=== PATIENT | male | born 2005 | race Caucasian/White ===

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

== ENCOUNTER 2023-05-31 15:06 | Emergency (ER) | payer OTHER ==
[2023-05-31 15:10] VITALS: BMI 20.7
[2023-05-31] MEDS ORDERED: ACETAMINOPHEN 500 MG TABLET (FP) PO ONE (15:42)
[2023-05-31] MEDS ORDERED: OLANZapine 5 MG TABLET PO ONE (18:17)
[2023-05-31] MEDS ORDERED: ACETAMINOPHEN 325 MG TABLET (FP) ONE (18:36)
[2023-05-31 18:38] LABS: ACTIVATED PTT 27.1 SECONDS (25.2-36.5); INR 1.12 (0.83-1.09)
[2023-05-31 18:42] LABS: CHLORIDE 99 mmol/L (98-107); POTASSIUM 4.4 mmol/L (3.5-5.1); SODIUM 133 mmol/L (136-145)
[2023-05-31 18:43] LABS: CALCIUM 9.7 mg/dL (8.5-10.1)
[2023-05-31 18:44] LABS: ALBUMIN 4.5 g/dl (3.4-5.0); ANION GAP 10 mmol/L (4-13); CO2 25 mmol/L (21-32); GLUCOSE,RANDOM 99 mg/dL (74-106)
[2023-05-31 18:47] LABS: CREATININE 0.9 mg/dL (0.55-1.3); SGOT/AST 12 U/L (15-37); SGPT/ALT 24 U/L (13-61)
[2023-05-31 18:49] LABS: BILIRUBIN,TOTAL 0.7 mg/dL (0.2-1); TOT PROT 7.9 g/dl (6.4-8.2)
[2023-05-31 18:50] LABS: ALK PHOS 81 U/L (45-117)
[2023-05-31 19:32] LABS: BASO % 0.4 % (0-2.0); EOS % 0.1 % (0-4.5); HEMATOCRIT 49.9 % (35.4-49); HEMOGLOBIN 16.9 GM/dL (11.7-16.9); LYMPH % 9.9 % (8-40); MCH 30.8 pg (25.7-33.7); MCHC 33.9 g/dl (32.0-35.9); MEAN CELL VOLUME 90.8 fl (80-96); MEAN PLT VOLUME 8.1 fl (7.5-11.1); MONO % 6.5 % (3.8-10.2); NEUT % 83.1 % (42.8-82.8); PLATELET COUNT 371 10^3/uL (134-434); RDW 13.3 % (11.9-15.9); WHITE BLOOD COUNT 10.6 K/mm3 (4.0-10.0)
[2023-05-31 22:20] LABS: METHADONE, UR NEGATIVE (NEGATIVE); URINE BENZODIAZEPINES NEGATIVE (NEGATIVE)
[2023-05-31 22:21] LABS: OPIATES, URI NEGATIVE (NEGATIVE); PHENCYCLIDINE,URINE NEGATIVE (NEGATIVE); URINE BARBITURATES NEGATIVE (NEGATIVE)
[2023-05-31 22:27] LABS: COCAINE, UR NEGATIVE (NEGATIVE); URINE AMPHETAMINES NEGATIVE (NEGATIVE)
[2023-06-01 12:11] VITALS: BP 131/85; PULSE 67; RESP 18; TEMP 98.2
== END 2023-06-01 12:16 | disposition home or self-care (01) ==
LOC: JER 15:06 → JERFT 15:06 → JER 06-01 12:16
PROC: 0HQEXZZ Repair Left Lower Arm Skin, External Approach (ICD-10-PCS; principal; 2023-05-31)
DX: S61.012A Laceration without foreign body of left thumb without damage to nail, initial encounter (principal); R45.1 Restlessness and agitation; R45.6 Violent behavior; R45.851 Suicidal ideations; W26.8XXA Contact with other sharp object(s), not elsewhere classified, initial encounter; Z20.822 Contact with and (suspected) exposure to COVID-19
CPT/HCPCS: 0241U-QW; 36415; 80053; 80307; 85025; 85610; 85730; 87086; 93005; 93010; 99284-25

== ENCOUNTER 2023-06-09 06:13 | Emergency (ER) | payer OTHER ==
[2023-06-09 06:22] VITALS: BP 138/80; PULSE 97; RESP 20; TEMP 98; BMI 20.7
== END 2023-06-09 08:15 | disposition home or self-care (01) ==
LOC: JER 06:13
DX: Z48.02 Encounter for removal of sutures (principal)
CPT/HCPCS: 99282-25

== ENCOUNTER 2023-12-17 21:48 | Emergency (ER) | payer OTHER ==
[2023-12-17 21:53] VITALS: BP 153/84; PULSE 101; RESP 18; BMI 21.2
[2023-12-17] MEDS ORDERED: IBUPROFEN 600 MG TABLET (FP) PO ONE (23:09)
[2023-12-17] MEDS: IBUPROFEN 600 MG TABLET (FP) PO ONE (23:10)
[2023-12-17 23:13] VITALS: TEMP 98.2
== END 2023-12-17 23:27 | disposition home or self-care (01) ==
LOC: JERFT 21:48 → JER 21:48 → JERFT 23:27
DX: S93.401A Sprain of unspecified ligament of right ankle, initial encounter (principal); M25.471 Effusion, right ankle; X50.9XXA Other and unspecified overexertion or strenuous movements or postures, initial encounter; Y93.39 Activity, other involving climbing, rappelling and jumping off
CPT/HCPCS: 73610-TC-RT-FY; 73630-TC-RT-FY; 99283-25